=== PATIENT | female | born 1980 | race Caucasian/White ===

== ENCOUNTER 2017-12-28 06:31 | Emergency (ER) | payer OTHER ==
[~2017-12-28] VITALS: Ht 172.7 cm; Wt 102.1 kg
== END 2017-12-28 13:39 | disposition home or self-care (01) ==
LOC: ER 06:31
DX: O02.1 Missed abortion (principal)

== ENCOUNTER 2018-01-02 06:21 | Day surgery (SDC) | payer OTHER | END 2018-01-02 16:05 | disposition home or self-care (01) | LOC: CIR.AMB 06:21 | DX: O02.1 Missed abortion (principal) ==